=== PATIENT | male | born 1995 | race Caucasian/White ===

== ENCOUNTER 2025-03-15 05:48 | Emergency (ER) | payer SELFPAY ==
[2025-03-15] MEDS ORDERED: HYDROCODONE/APAP 5/325 MG TAB ONE (06:44)
--- NOTE | 2025-03-15 07:12 | EDPHYS ---
Physician Documentation [facility] Name: Vik Decker Age: 29 yrs Sex: Male : 1995 Arrival Date: 03/15/2025 Time: 05:48 Bed 6 Private MD: ED Physician Jigar Sosa HPI: 03/15 06:52 This 29 yrs old Male presents to ER via Ambulatory with complaints of Thumb Injury. tt7 06:52 Patient reports that 5 days ago he threw down his game console controller and thinks tt7 that he hit his right thumb against his desk while doing so, over the past 5 days he has been having increased pain and swelling, no other injury, no significant past medical history. Historical: - Allergies: 06:02 No Known Allergies; kb4 - Immunization history:: Adult Immunizations unknown. - Infectious Disease History:: Denies. - Social history:: Smoking status: Patient denies any tobacco usage or history of. Patient uses street drugs, marijuana. ROS: 06:53 Constitutional: negative for fever. Cardiovascular: negative for chest pain. tt7 Respiratory: negative for shortness of breath. Abdomen/GI: negative for abdominal pain, nausea, vomiting, diarrhea. Skin: negative for rash. Neuro: negative for focal weakness. 06:53 MS/extremity: Positive for injury or acute deformity, pain, Exam: 06:54 Constitutional: vital signs reviewed, well appearing. Head/Face: normocephalic, tt7 atraumatic. Eyes: no conjunctival injection, anicteric sclerae. ENT: mucus membranes moist. Neck: trachea midline, no JVD, no meningismus. Cardiovascular: regular rate and rhythm, no lower extremity edema. Respiratory: normal respiratory effort, no accessory muscle use. Skin: warm, dry, intact, normal turgor, normal color, no rash. MS/ Extremity: Distal aspect of right thumb is moderately swollen with mild amount of tenderness and some bruising, no subungual hematoma is seen, skin is intact, patient is neurovascularly intact distally, no tenderness or signs of injury proximal to the DIP joint Neuro: alert and oriented with appropriate mental status, normal speech, follows commands, no focal neurologic deficits. Psych: appropriate mood and affect. Vital Signs: 05:58 BP 114 / 70; Pulse 83; Resp 18; Temp 97.9; Pulse Ox 100% on R/A; Weight 61.23 kg; kb4 Height 6 ft. 0 in. ; Pain /10; 07:00 BP 120 / 67; Pulse 63; Resp 18; Temp 98(O); Pulse Ox 98% on R/A; jp5 08:00 BP 120 / 75; Pulse 61; Resp 18; Pulse Ox 99% on R/A; jp5 05:58 Body Mass Index 18.31 (61.23 kg, 182.88 cm) kb4 05:58 Pain Scale: Adult kb4 MDM: 05:53 Medical Screening Exam initiated tt7 06:55 Differential Diagnosis Phalanx fracture, thumb contusion. Data reviewed: vital signs, tt7 nurses notes, radiologic studies. ED course: Well-appearing patient with thumb injury 5 days ago, neurovascularly intact distally, exam reassuring, will obtain x-ray imaging and treat patient's pain. 07:01 ED course: I personally interpreted the patient's x-ray imaging, my interpretation tt7 there is no acute fracture or dislocation. 08:42 ED course: I discussed x-ray results with patient. Patient's right thumb with large ms3 hematoma/ecchymoses distally with erythema proximally. Added doxycycline 100 mg twice daily to patient's discharge instructions prepared by Dr. Sosa. Return precautions were discussed include worsening symptoms, fevers, chills, or any other concerns. Patient to follow-up with primary care physician in 2 to 3 days. All questions were answered.. 03/15 05:58 Order name: NEYDA Finger-Thumb RIGHT; Complete Time: 08:33 tt7 Administered Medications: 06:49 Drug: HYDROcodone-acetaminophen PO 5 mg-325 mg 1 tabs PO once Route: PO; kb4 Disposition: 03/16 04:05 Co-signature as Attending Physician, Jigar Sosa DO. tt7 Disposition Summary: 03/15/25 07:12 Discharge Ordered Notes: Location: Home tt7 Problem: new tt7 Symptoms: have improved tt7 Condition: Stable tt7 Diagnosis - Other sprain of right thumb tt7 - Thumb hematoma ms3 Discharge Instructions: - Discharge Summary Sheet tt7 - Thumb Sprain tt7 Forms: - Work release form jp5 - Medication Reconciliation Form tt7 - Antibiotic Education tt7 - Prescription Opioid Use tt7 - Patient Portal Instructions tt7 - Leadership Thank You Letter tt7 Prescriptions: - Doxycycline Hyclate 100 mg Oral Tablet - take 1 tablet ORAL route every 12 hours; 20 tablet; Refills: 0, Product ms3 Selection Permitted Signatures: Dispatcher [employer] Nilo Turner, DO DO ms3 Jolly Ramsey, RN RN kb4 Jigar Sosa, DO DO tt7
--- NOTE | 2025-03-15 07:12 | ER ---
Nurse's Notes [facility] Name: Vik Decker Age: 29 yrs Sex: Male : 1995 Arrival Date: 03/15/2025 Time: 05:48 Bed 6 Private MD: Diagnosis: Other sprain of right thumb;Thumb hematoma Presentation: 03/15 05:58 Chief complaint: Patient states: pr reports "i was playing video games and slammed the 4 controller down about a week ago", c/o R thumb pain x1wk. Coronavirus screen: At this time, unable to obtain information related to travel outside the [place] Ebola Screen: No symptoms or risks identified at this time. Initial Sepsis Screen: Does the patient meet any 2 criteria? No. Patient's initial sepsis screen is negative. Does the patient have a suspected source of infection? No. Patient's initial sepsis screen is negative. Risk Assessment: Do you want to hurt yourself or someone else? Patient reports no desire to harm self or others. Onset of symptoms was March 10, 2025. 05:58 Method Of Arrival: Ambulatory [facility] 05:58 Acuity: KOMAL 3 kb4 Triage Assessment: 06:02 General: Appears in no apparent distress. comfortable, Behavior is calm, cooperative. kb4 Pain: Complains of pain in dorsal aspect of distal phalanx of right thumb and palmar aspect of distal phalanx of right thumb Pain currently is 6 out of 10 on a pain scale. Quality of pain is described as pressure. Musculoskeletal: Swelling present in dorsal aspect of distal phalanx of right thumb and palmar aspect of distal phalanx of right thumb Reports pain in dorsal aspect of distal phalanx of right thumb and palmar aspect of distal phalanx of right thumb. Injury Description: Crush injury sustained to dorsal aspect of distal phalanx of right thumb and palmar aspect of distal phalanx of right thumb was sustained 1wk. Historical: - Allergies: 06:02 No Known Allergies; kb4 - Immunization history:: Adult Immunizations unknown. - Infectious Disease History:: Denies. - Social history:: Smoking status: Patient denies any tobacco usage or history of. Patient uses street drugs, marijuana. Screenin:05 [facility] ED Fall Risk Assessment (Adult) History of falling in the last 3 months, kb4 including since admission No falls in past 3 months (0 pts) Confusion or Disorientation No (0 pts) Intoxicated or Sedated No (0 pts) Impaired Gait No (0 pts) Mobility Assist Device Used No (0 pt) Altered Elimination No (0 pt) Score/Fall Risk Level 0 - 2 = Low Risk. Abuse screen: Denies threats or abuse. Denies injuries from another. Nutritional screening: No deficits noted. Tuberculosis screening: No symptoms or risk factors identified. Assessment: 06:27 Neuro: Level of Consciousness is awake, alert, obeys commands, Oriented to person, kb4 place, time, situation. Cardiovascular: Patient's skin is warm and dry. Respiratory: Airway is patent Respiratory effort is even, unlabored, Respiratory pattern is regular, symmetrical. GI: No signs and/or symptoms were reported involving the gastrointestinal system. : No signs and/or symptoms were reported regarding the genitourinary system. EENT: No signs and/or symptoms were reported regarding the EENT system. Vital Signs: 05:58 BP 114 / 70; Pulse 83; Resp 18; Temp 97.9; Pulse Ox 100% on R/A; Weight 61.23 kg; kb4 Height 6 ft. 0 in. ; Pain 4/10; 07:00 BP 120 / 67; Pulse 63; Resp 18; Temp 98(O); Pulse Ox 98% on R/A; jp5 08:00 BP 120 / 75; Pulse 61; Resp 18; Pulse Ox 99% on R/A; jp5 05:58 Body Mass Index 18.31 (61.23 kg, 182.88 cm) kb4 05:58 Pain Scale: Adult kb4 ED Course: 05:50 Patient arrived in ED. mr 05:53 Jigar Sosa DO is Attending Physician. tt7 05:58 Jolly Ramsey, [place] is Primary Nurse. kb4 06:02 Triage completed. kb4 06:02 Arm band placed on left wrist. kb4 06:05 Patient has correct armband on for positive identification. Call light in reach. kb4 06:33 XRAY Finger-Thumb RIGHT In Process Unspecified. EDMS 07:21 Patient did not have IV access during this emergency room visit. jp5 Administered Medications: 06:49 Drug: HYDROcodone-acetaminophen PO 5 mg-325 mg 1 tabs PO once Route: PO; kb4 Medication: 06:29 VIS not applicable for this client. kb4 Outcome: 07:12 Discharge ordered by . tt7 08:47 Discharged to home ambulatory, with family, jp5 08:47 Condition: stable 08:47 Discharge instructions given to patient, family, Instructed on discharge instructions, follow up and referral plans. medication usage, Demonstrated understanding of instructions, follow-up care, medications, Prescriptions given X 1, 08:48 Patient left the ED. jp5 Signatures: Dispatcher [employer] EDHI Carol Childers, Alan Reg mr KnottKourtney, RN RN jp5 Jolly Ramsey RN RN kb4 Jigar Sosa, DO PABON tt7 Corrections: (The following items were deleted from the chart) 08:24 07:20 Discharged to home ambulatory, jp5 jp5 08:24 07:20 Condition: stable jp5 jp5 08:24 07:20 Discharge instructions given to patient, Instructed on discharge instructions, jp5 follow up and referral plans. Demonstrated understanding of instructions, follow-up care, jp5 08:24 07:20 Discharged to home with family, jp5 jp5
--- NOTE | 2025-03-15 08:29 | RAD REPORT ---
EXAM:Finger-Thumb Right HISTORY: PAIN COMPARISON: None FINDINGS/IMPRESSION: Moderate soft tissue swelling is seen affecting the distal aspect of the thumb. Mild cortical buckling along the base of the distal phalanx radial aspect favored to be chronic. No definitive acute fracture. If pain persists or progresses, follow-up MRI would be recommended.
[2025-03-15 08:59] VITALS: TEMP 98
[2025-03-15 09:01] VITALS: BP 120/75; O2SAT 99
== END 2025-03-15 08:48 | disposition home or self-care (01) ==
LOC: ER 05:48
DX: S63.681A Other sprain of right thumb, initial encounter (principal)
CPT/HCPCS: 99283